=== PATIENT | male | born 1965 | race Caucasian/White ===

== ENCOUNTER 2022-12-25 10:22 | Emergency (ER) | payer OTHER ==
[~2022-12-25] VITALS: Ht 182.9 cm; Wt 145.1 kg
[2022-12-25 10:31] VITALS: BP_SYST 180; PULSE 80; RESP 16; TEMP 97.8; O2SAT 95
[2022-12-25] MEDS ORDERED: LIDOCAINE PATCH 5% 1 EA TP ONE (12:15)
[2022-12-25] MEDS ORDERED: KETOROLAC TROMETHAMINE 30 MG VIAL IM ONE (12:15)
[2022-12-25] MEDS ORDERED: LIDO1ADH77 TD (12:17)
[2022-12-25] MEDS ORDERED: IBUP-1969 PO (12:17)
== END 2022-12-25 12:29 | disposition home or self-care (01) ==
LOC: SED 10:22
DX: S29.011A Strain of muscle and tendon of front wall of thorax, initial encounter (principal); Z88.0 Allergy status to penicillin; Z79.899 Other long term (current) drug therapy; X58.XXXA Exposure to other specified factors, initial encounter; Y93.89 Activity, other specified; Y92.89 Other specified places as the place of occurrence of the external cause; Y99.8 Other external cause status
CPT/HCPCS: 99284; 71045; 71100; 96372; J1885